=== PATIENT | male | born 1995 | race American Indian/Alaskan Native ===

== ENCOUNTER 2016-10-27 16:50 | Emergency (ER) | payer OTHER ==
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
--- NOTE | 2016-10-27 18:13 | CT ---
PROCEDURE: CT HEAD WITHOUT CONTRAST. HISTORY: headache COMPARISON: Comparison is made to the previous study dated 10/12/2015 TECHNIQUE: Axial computed tomography images were obtained through the head/brain without intravenous contrast. Radiation dose: Total exam DLP = 818.36 mGy-cm. This CT exam was performed using one or more of the following dose reduction techniques: Automated exposure control, adjustment of the mA and/or kV according to patient size, and/or use of iterative reconstruction technique. FINDINGS: HEMORRHAGE: No intracranial hemorrhage. BRAIN: No mass effect or edema. No atrophy or chronic microvascular ischemic changes. VENTRICLES: Unremarkable. No hydrocephalus. CALVARIUM: Unremarkable. PARANASAL SINUSES: Unremarkable as visualized. No significant inflammatory changes. MASTOID AIR CELLS: Unremarkable as visualized. No inflammatory changes. OTHER FINDINGS: None. IMPRESSION: No evidence of acute intracranial hemorrhage intracranial collection mass effect or midline shift.
[2016-10-27 18:44] VITALS: BP 127/73; PULSE 52; RESP 17; TEMP 99; O2SAT 99
== END 2016-10-27 18:44 | disposition home or self-care (01) ==
LOC: C.ER 16:50
DX: R51 Headache (principal)

== ENCOUNTER 2016-11-19 20:30 | Emergency (ER) | payer OTHER | END 2016-11-19 21:55 | disposition home or self-care (01) | LOC: C.ER 20:30 ==

== ENCOUNTER 2018-05-13 06:38 | Emergency (ER) | payer OTHER ==
[2018-05-13 06:38] VITALS: BMI 20.5
[2018-05-13 06:50] VITALS: RESP 18
--- NOTE | 2018-05-13 08:16 | C.PDOC ---
History Of Present Illness 23 y/o male presents to the ER complaining of right 2nd finger pain and swelling s/p fall yesterday. Patient states that he fell while he walking down the stairs. Patient denies having LOC, headache, dizziness, weakness, and numbness. - HPI Time Seen by Provider: 05/13/18 07:21 Chief Complaint (Nursing): Trauma History Per: Patient History/Exam Limitations: no limitations Onset/Duration Of Symptoms: Days Severity: Moderate Past Medical History Reviewed: Historical Data, Nursing Documentation, Vital Signs Vital Signs: Last Vital Signs Temp 98.4 F 05/13/18 06:45 Pulse 56 L 05/13/18 06:45 Resp 18 05/13/18 06:45 BP 132/78 05/13/18 06:45 Pulse Ox 99 05/13/18 06:45 - Medical History PMH: Asthma, Bipolar Disorder Other Surgeries: Hx of surgeries - [employer] Procedures GROUP PSYCHOTHERAPY (10/12/15) INDIVIDUAL PSYCHOTHERAPY, SUPPORTIVE (10/24/15) MEDICATION MANAGEMENT (10/12/15) Family History: States: No Known Family Hx - Social History Hx Alcohol Use: No Hx Substance Use: No - Immunization History Hx Tetanus Toxoid Vaccination: No Hx Influenza Vaccination: No Hx Pneumococcal Vaccination: No Review Of Systems Except As Marked, All Systems Reviewed And Found Negative. Musculoskeletal: Positive for: Other (right 2nd finger) Physical Exam - Physical Exam Appears: Non-toxic, No Acute Distress Skin: Normal Color, Warm, Dry Head: Atraumatic, Normacephalic Eye(s): bilateral: Normal Inspection Nose: Normal Oral Mucosa: Moist Neck: Supple Chest: Symmetrical Extremity: No Normal ROM (decreased ROM in right 2nd finger), Swelling (swelling in right 2nd finger) Extremity: Right: Limited ROM To Joint (2 nd finger) Neurological/Psych: Oriented x3, Normal Speech Gait: Steady ED Course And Treatment O2 Sat by Pulse Oximetry: 99 (RA) Pulse Ox Interpretation: Normal Orthopedic Time Performed: 08:30 Procedure: Splint Location: Right, Finger Diagnosis: Fracture Type: Closed Location: Right Bone: 2nd Capillary refill: Normal Capillary Refill: Normal Compartment: Normal Distal Sensation: Normal Distal Motor Function: Normal Patient tolerated procedure: Well Medical Decision Making Medical Decision Making: Plan: --Motrin PO --X-Ray-Right Hand Updates: X-Ray- Right Hand shows fracture. Splint has been applied to finger by cytotechnologist/cytology supervisor. Patient has been discharged and follow up in orthopedic clinic. 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 - Scribe Statement The provider has reviewed the documentation as recorded by the Scribe Sin Agosto Provider Attestation All medical record entries made by the Scribe were at my direction and personally dictated by me. I have reviewed the chart and agree that the record accurately reflects my personal performance of the history, physical exam, medical decision making, and the department course for this patient. I have also personally directed, reviewed, and agree with the discharge instructions and disposition.
[2018-05-13 08:26] VITALS: BP 130/78; PULSE 82; TEMP 98.1
[2018-05-13 08:34] VITALS: O2SAT 99
--- NOTE | 2018-05-13 11:32 | RAD ---
Date of service: 05/13/2018 PROCEDURE: Right Index finger radiographs. HISTORY: trauma COMPARISON: None. TECHNIQUE: AP radiograph of the right hand, as well as spot oblique and lateral images of index finger were obtained. FINDINGS: RIGHT INDEX FINGER: Nondisplaced transverse fracture base of 1st proximal phalangeal diaphysis. Of note is the patient is status post amputation of the 1st digit in the mid distal phalanx. JOINTS: Normal. SOFT TISSUES: Normal. OTHER FINDINGS: None. IMPRESSION: Nondisplaced transverse fracture base of 2nd proximal phalanx. Amputation 1st digit mid distal phalanx.
== END 2018-05-13 08:25 | disposition home or self-care (01) ==
LOC: C.ER 06:38
DX: S62.640A Nondisplaced fracture of proximal phalanx of right index finger, initial encounter for closed fracture (principal); W10.9XXA Fall (on) (from) unspecified stairs and steps, initial encounter